=== PATIENT | female | born 1985 | race Caucasian/White ===

== ENCOUNTER 2018-01-28 11:42 | Emergency (ER) | payer BC ==
[~2018-01-28] VITALS: Ht 160 cm; Wt 51.3 kg
[2018-01-28 11:42] VITALS: BP 105/70
== END 2018-01-28 12:48 | disposition home or self-care (01) ==
LOC: ER 11:44
DX: S01.81XA Laceration without foreign body of other part of head, initial encounter (principal); Z88.2 Allergy status to sulfonamides; W22.8XXA Striking against or struck by other objects, initial encounter; Y93.89 Activity, other specified; Y92.89 Other specified places as the place of occurrence of the external cause; Y99.8 Other external cause status
CPT/HCPCS: A4606; A6402; A6403; Z7610